=== PATIENT | female | born 1980 | race Caucasian/White ===

== ENCOUNTER 2020-03-05 10:13 | Outpatient (CLI) | payer MEDICAID, SELFPAY ==
--- NOTE | 2020-03-05 | US_ITS ---
WS: [id number] LIMITED OBSTETRICAL ULTRASOUND HISTORY: DATING COMPARISON: None available. Presentation: Variable. Cervix: Closed and normal length. Placenta: Anterior, no previa or abruption. Grade: 0 HEART: FHR of 153 BPM. measurements: BPD = 3.0 cm = 15w3d HC = 11.1 cm = 15w2d AC = 9.2 cm = 15w2d FL = 1.7 cm = 15w1d EFW: 119 g AGA by ultrasound: 15w2d JAZMYN by ultrasound: 08/25/2020 US/US OB <= 14 weeks fetus [id number] IMPRESSION: 1. Single intrauterine gestation of 15 weeks 2 days with an EDC of 08/25/2020. 2. Anterior placenta.
== END 2020-03-05 10:14 | disposition home or self-care (01) ==
LOC: RAD 10:21
PROVIDERS: PCP Family Medicine; Visit Provider Family Medicine
DX: Z34.92 Encounter for supervision of normal pregnancy, unspecified, second trimester; Z3A.15 15 weeks gestation of pregnancy
CPT/HCPCS: 76801

== ENCOUNTER 2020-04-10 15:34 | Outpatient (CLI) | payer MEDICAID, SELFPAY ==
--- NOTE | 2020-04-10 15:38 | US_ITS ---
WS: [id number] OB ultrasound, 04/10/2020 Clinical Data: ANATOMY/ SUPERVISION Comparison: OB ultrasound, 03/05/2020. Findings: There is a single intrauterine in the vertex presentation. The placenta is Anterior and gra de 1. There is a normal amount of amnionic fluid. The heart rate is 160 beats per minute. The c ervix measures 3.53 cm and is closed Measurements of growth and development: BPD: 4.8 cm HC: 17.4 cm AC: 15.7 cm FL: 3.2 cm The estimated weight is 355 or approximately 12 ounces The estimated gestational age is 20w3d w ith an JAZMYN of approximately 08/25/2020. anatomy show a normal stomach, kidneys, bladder, cord insertion, three-vessel cord, entire spin e, four-chamber heart, lateral cerebral ventricles, cerebellum and cisterna magna. US/US OB >= 14 weeks fetus [id number] Impression: 1. Single intrauterine in the vertex presentation. 2. Estimated gestational age 20w3d with an JAZMYN of 08/25/2020. 3. heart rate 160 beats per minute.
== END 2020-04-10 15:35 | disposition home or self-care (01) ==
PROVIDERS: PCP Family Medicine; Visit Provider Family Medicine
DX: Z34.92 Encounter for supervision of normal pregnancy, unspecified, second trimester; Z3A.20 20 weeks gestation of pregnancy
CPT/HCPCS: 76805

== ENCOUNTER → 2020-07-18 09:01 | Day surgery (SDC) | payer MEDICAID, SELFPAY ==
[2020-07-18 09:33] VITALS: BP 122/78; PULSE 77; RESP 18; TEMP 36.4; O2SAT 98; BMI 29.3
[2020-07-18 11:10] VITALS: BP 122/78; PULSE 77; RESP 18; TEMP 36.4; O2SAT 98
--- NOTE | 2020-07-18 11:18 | PC.NURSE ---
Pt did not sign a consent. Pt gave verbal consent after discussion of treatment. I signed consent stating verbal was given.
== END ==
PROVIDERS: PCP Family Medicine; Visit Provider Family Medicine
DX: O36.0990 Maternal care for other rhesus isoimmunization, unspecified trimester, not applicable or unspecified (principal); Z3A.00 Weeks of gestation of pregnancy not specified
CPT/HCPCS: 36415; 86850; 86900; 90384

== ENCOUNTER 2020-08-23 03:51 | Inpatient (IN) | payer MEDICAID, SELFPAY ==
[2020-08-23] VITALS (34 sets, daily range): BP systolic 109–148; BP diastolic 54–87; PULSE 67–93; RESP 16–18; TEMP 36.5–37; BMI 30.4
--- NOTE | 2020-08-23 03:09 | PM.HP ---
Providers/Chief Complaint Primary Care Provider: Shamir Tony MD Chief Complaint: contractions History of Present Illness Angella Jones is a 39 year old female at 30.6 weeks gestation by LMP consistent with 15-week ultrasound. Her is complicated by smoking now quit in early , EtOH use now quit in early , THC use during early , Rh-, advanced maternal age, history of delivery, establish care at 14 weeks. The patient presented to labor and delivery triage on the morning of 08/23/2020 secondary to contractions. She began having contractions at approximately 10 PM on 08/22/2020. These gradually got closer together, so she presented to labor and delivery for further evaluation. Upon admission she was 6 to 7 cm dilated. In clinic on the morning of 08/22/2020, she was 3 cm dilated. Patient denies any leakage of fluid. She has had minimal vaginal spotting. She denies any fevers, headache, chest pain, cough, nausea, vomiting, diarrhea, constipation, dysuria. Medications/Allergies Home Medications Medication Instructions Recorded Confirmed Last Taken Type [id number]-[id number] 1 tab PO DAILY 07/18/20 07/18/20 Unknown History [] Allergies Allergy/AdvReac Type Severity Reaction Status Date / Time No Known Allergies Allergy Verified 07/18/20 09:35 PFSH Acute PFSH: Social History (Updated 08/23/20 @ 03:15 by Shamir Tony MD) Smoking and tobacco status: former smoker Alcohol intake: former Substance/Drug Use: former Date of last use: THC Vitals/I&O/Wt Last Vital Signs Temp 98.4 F 08/23/20 02:47 Pulse 93 08/23/20 02:43 BP 135/60 08/23/20 02:43 Weight last 48 hrs Weight 200 lb Physical Exam Narrative: EXAM NARRATIVE: General: Alert and oriented x3 Eyes: Pupils equal round and reactive to light and accommodation Mouth: Mucous membranes moist, pharynx non-erythematous Cardiac: Regular rate and rhythm without murmurs Lungs: Clear to auscultation bilaterally without wheezes, crackles or rhonchi Abdomen: Soft, non-tender, fundus consistent with gestational age Extremities: +1 pitting edema in the bilateral lower extremities A&P Additional A&P Information The patient is currently doing well. Contractions are every 3 to 5 minutes with a category 1 tracing. heart tones were in the mid 130s with moderate variability and good accelerations. The patient was 3 cm dilation in clinic on the morning of 08/22/2020. She was 6 to 7 cm upon admission. The patient is currently doing well. She plans to go without an epidural. She plans to breast-feed. The patient admitted to smoking marijuana earlier in , however had a negative urine drug screen upon establish care. We will need to get a repeat done today. The patient had a negative GBS on 07/30/2020. The patient had a negative COVID-19 test on 08/06/2020. Currently the patient is doing well. We will continue with routine intrapartum management. Plan for intermittent monitoring and follow-up. All questions were answered. Attestations Medical Necessity Statement*: Patient will be here for greater than 2 midnights due to routine intrapartum and management of labor and delivery. Coding Level of Care Code Acute Metallurgical Engineering Teacher for Joao Mathis
[2020-08-23 03:26] LABS: Basophils % 0.2 %; Eosinophils % 0.3 %; Hematocrit 35.7 % (37.0-47.0); Hemoglobin 12.2 g/dL (11.5-15.3); Lymphocytes % 22.9 %; Mean Corpuscular HGB Conc 34.2 g/dL (30.0-36.0); Mean Corpuscular Hemoglobin 32.8 pg (28.0-34.0); Mean Platelet Volume 10.7 fL (7.4-10.4); Monocytes # 0.6 10^3/uL (0.2-0.9); Monocytes % 6.3 %; Neutrophils # 6.22 10^3/uL (1.8-7.7); Nucleated Red Blood Cells % 0 %; Platelet Count 195 10^3/cmm (130-400); Red Blood Count 3.72 10^6/uL (4.1-5.3); Red Cell Distribution Width 12.7 % (12.1-15.1); White Blood Count 8.9 10^3/uL (4.0-10.0)
[2020-08-23] MEDS: dextrose 5%-lactated ringers 1,000 ML 125 ML IV (03:50)
[2020-08-23] MEDS: oxytocin 30 UNIT/500 ML BAG 600 UNIT IV (04:03)
[2020-08-23] MEDS: lidocaine 2% INJ 20 mL INJECTION (04:03)
--- NOTE | 2020-08-23 04:24 | P.PCNOB_ITS ---
Delivery Note: Date of delivery: August 23, 2020 Pre-delivery diagnoses: 1. Intrauterine at 38.6 weeks gestation 2. Smoking in early first trimester now quit 3. Rare EtOH use during early first trimester now quit 4. THC use during early first trimester now quit 5. Rh- 6. Advanced maternal age 7. History of delivery Post-delivery diagnoses: 1. Intrauterine at 38.6 weeks gestation 2. Smoking in early first trimester now quit 3. Rare EtOH use during early first trimester now quit 4. THC use during early first trimester now quit 5. Rh- 6. Advanced maternal age 7. History of delivery Procedure: Spontaneous vaginal delivery Op report anesthesia: None Estimated blood loss (mL): 75 Findings: Angella Jones is a 39 year old G2 now P2 status post spontaneous vaginal delivery at 38.6 weeks gestation by LMP consistent with 15-week ultrasound. Her was complicated by smoking now quit in early , EtOH use now quit in early , THC use during early , Rh-, advanced maternal age, history of delivery, establish care at 14 weeks. 1. Delivery of healthy infant female weighing 7 pounds 12 ounces with Apgars of 8 and 9 Pre-Delivery Course: The patient presented to labor and delivery triage secondary to contractions that started at approximately 10 PM on 08/22/2020. She presented to triage early in the morning on 08/23/2020. She was 6 to 7 cm dilated upon admission. She made rapid change on her own without any IV Pitocin or augmentation of labor. She was complete by 3:44 AM on 08/23/2020. The patient did not want to receive an epidural or any pain medications. Delivery: AROM was performed at 3:44 AM on 08/23/2020. Patient began pushing at 3:46 AM. Patient pushed well and the infant delivered in the OA position at 3:51 AM on 08/23/2020. There was no nuchal cord. The right shoulder was the anterior shoulder and delivered with ease. The rest of the delivered with ease. The was crying immediately upon delivery. The 's mouth and nose were bulb suctioned by myself. The infant was placed on the mother's chest where the nurses were waiting to care for her. After approximately 1 minute the 's umbilical cord was clamped by myself and cut by the infant's father. Cord blood was obtained. The cord was then drained of blood and tract ion was placed on the umbilical cord. The uterus was massaged and the placenta delivered at 3:57 AM on 08/23/2020. The placenta was noted to be intact with a central umbilical cord insertion site. A three-vessel cord was noted. The cervix was inspected and no lacerations were noted. The vaginal wall was inspected and a small second-degree vaginal laceration was noted in the perineal region. This was repaired using 1% lidocaine for anesthesia and 3-0 Vicryl in a running fashion. The patient tolerated this well. Rectal exam was done and no sutures were noted in the rectal vault. Currently both the mother and infant are doing well. A&P Assessment and plan (1) Spontaneous vaginal delivery: Status: Acute Coding Level of Care Code Acute Checker Dump Grounds for Chg Fwd Diagnoses Spontaneous vaginal delivery O80
[2020-08-23 08:13] LABS: Amphetamines Screen Urine Negative (Negative); Barbiturates Screen Urine Negative (Negative); Benzodiazepines Screen Urine Negative (Negative); Cocaine Screen Urine Negative (Negative); Opiate Screen Urine Negative (Negative); PCP Screen Urine Negative (Negative); THC Screen Urine Negative (Negative)
[2020-08-23] MEDS: docusate sodium 100 mg Capsule PO ×2 (09:31→18:29)
[2020-08-23] MEDS: prenatal vitamin Capsule 1 CAP PO (09:31)
[2020-08-23] MEDS: ibuprofen 800 mg tablet PO ×3 (09:31→21:20)
[2020-08-23 16:26] LABS: Hematocrit 35.6 % (37.0-47.0); Hemoglobin 11.9 g/dL (11.5-15.3); Mean Corpuscular HGB Conc 33.4 g/dL (30.0-36.0); Mean Corpuscular Hemoglobin 32.8 pg (28.0-34.0); Mean Corpuscular Volume 98.1 fL (81-99); Mean Platelet Volume 10.6 fL (7.4-10.4); Platelet Count 192 10^3/cmm (130-400); Red Blood Count 3.63 10^6/uL (4.1-5.3); Red Cell Distribution Width 12.9 % (12.1-15.1); White Blood Count 11.7 10^3/uL (4.0-10.0)
[2020-08-24] VITALS (7 sets, daily range): BP systolic 111–134; BP diastolic 55–69; PULSE 71–83; RESP 16–17; TEMP 36.4–36.7
--- NOTE | 2020-08-24 09:19 | P.DS_ITS ---
Discharge Providers Date of Admission: 08/23/20 03:51 Date of Discharge: August 24, 2020 Attending Provider at Admission: Shamir Tony MD Attending Provider at Discharge: Shamir Tony MD Primary Care Provider: Shamir Tony MD Diagnoses at Discharge Discharge Diagnosis (1) Spontaneous vaginal delivery: Status: Acute Reason for Visit Reason for Visit: contractions Hospital Course Hospital Course The patient presented to labor and delivery triage secondary to contractions that started at approximately 10 PM on 08/22/2020. She presented to triage early in the morning on 08/23/2020. She was 6 to 7 cm dilated upon admission. She made rapid change on her own without any IV Pitocin or augmentation of labor. She was complete by 3:44 AM on 08/23/2020. The patient did not want to receive an epidural or any pain medications. Delivery: AROM was performed at 3:44 AM on 08/23/2020. Patient began pushing at 3:46 AM. Patient pushed well and the infant delivered in the OA position at 3:51 AM on 08/23/2020. There was no nuchal cord. The right shoulder was the anterior shoulder and delivered with ease. The rest of the infant delivered with ease. The was crying immediately upon delivery. The infant's mouth and nose were bulb suctioned by myself. The was placed on the mother's chest where the nurses were waiting to care for her. After approximately 1 minute the infant's umbilical cord was clamped by myself and cut by the infant's father. Cord blood was obtained. The cord was then drained of blood and traction was placed on the umbilical cord. The uterus was massaged and the placenta delivered at 3:57 AM on 08/23/2020. The placenta was noted to be intact with a central umbilical cord insertion site. A three-vessel cord was noted. The cervix was inspected and no lacerations were noted. The vaginal wall was inspected and a small second-degree vaginal laceration was noted in the perineal region. This was repaired using 1% lidocaine for anesthesia and 3-0 Vicryl in a running fashion. The patient tolerated this well. Rectal exam was done and no sutures were noted in the rectal vault. : The patient has been doing very well without complications. The patient's bleeding is decreasing well. Her pain is well controlled with Motrin alone. The patient is ambulating, voiding, passing gas and tolerating food by mouth. Routine discharge instructions were discussed. All questions were answered. The patient is to follow-up with me at 6 weeks or sooner if needed. The patient and her significant other are in agreement with discharge home at this time. Physical Exam Narrative: EXAM NARRATIVE: General: Alert and oriented x3 Eyes: Pupils equal round and reactive to light and accommodation Mouth: Mucous membranes moist, pharynx non-erythematous Cardiac: Regular rate and rhythm without murmurs Lungs: Clear to auscultation bilaterally without wheezes, crackles or rhonchi Abdomen: Soft, non-tender, fundus is firm and 3 cm below the umbilicus. Extremities: +1 pitting edema in the bilateral lower extremities. Varicosities noted on the right lower extremity. Discharge Data Data Completed and Pending: Labs from last 24 hours 08/23/20 08/23/20 08/23/20 16:10 16:10 03:00 WBC 11.7 H RBC 3.63 L Hgb 11.9 Hct 35.6 L MCV 98.1 MCH 32.8 MCHC 33.4 RDW 12.9 Plt Count 192 MPV 10.6 H Blood Type A Negative Rho(D) Type Negative Antibody Screen Positive Antibody Identific ation Anti-D Screen Negative Vitals: Last Vital Signs Temp 97.7 F 08/24/20 07:36 Pulse 80 08/24/20 07:37 Resp 16 08/24/20 07:36 BP 134/69 08/24/20 07:37 Discharge Plan Discharge Patient Disposition: Home Condition: Good Prescriptions: New ibuprofen 800 mg Tablet 800 mg PO TID Qty: 30 RF: 0 -U 106.5-1 mg Capsule 1 cap PO DAILY Qty: 30 RF: 0 ferrous sulfate 325 mg (65 mg iron) tablet 325 mg PO BID Qty: 30 RF: 0 Discontinued 1 mg Tablet 1 tab PO DAILY RF: 0 Discharge Orders: Discharge Order (Routine); Ordered 08/24/20 Ordered By: Shamir Tony Referrals: Shamir Tony MD [Primary Care Provider] - 6 Weeks Discharge Diet: Regular Discharge Activity: Limit activity as instructed Patient Instructions: , Vitamins (By mouth), Breastfe eding Your Baby (DC), Breast Care for the Breast Feeding Mother (DC), Caring for Your Breastfed Baby (GEN), OB Discharge Report, OB Food/Drug Interaction Guide, OB Your Care - [facility], OB Proud Parent Packet, OB Vaginal Deliveries Activity Restrictions/Additional Instructions: I recommend avoiding baths during the first 6 weeks until bleeding is done. Showers are okay. Nothing per vagina for 6 weeks. Discharge Attestations Time Spent in Discharge Care*: greater than 30 min Quality Metrics Clinical Quality Measures During this hospital stay, did patient experience: None Coding Level of Care Code Acute Business Process Architect for Chg Fwd Diagnoses Spontaneous vaginal delivery O80
[2020-08-24] MEDS: docusate sodium 100 mg Capsule PO (09:47)
[2020-08-24] MEDS: prenatal vitamin Capsule 1 CAP PO (09:47)
[2020-08-24] MEDS: ibuprofen 800 mg tablet PO (09:47)
== END 2020-08-24 10:35 | disposition home or self-care (01) | DRG 807 ==
LOC: OPOB 03:59 → OBGYN 03:59
PROVIDERS: Admitting Provider Family Medicine; PCP Family Medicine; Visit Provider Family Medicine
DX: O70.1 Second degree perineal laceration during delivery (principal); Z37.0 Single live birth; Z3A.38 38 weeks gestation of pregnancy
CPT/HCPCS: 12345; 59409; 80306; 80500; 85025; 85027; 85460; 86850; 86870; 86900; 90384; 99211